=== PATIENT | female | born 1990 | race Caucasian/White ===

== ENCOUNTER 2018-09-13 07:28 | Inpatient (IN) | payer BC ==
[2018-09-13] VITALS (30 sets, daily range): BP systolic 115–164; BP diastolic 64–105; PULSE 85–134; TEMP 97.7–98.5
[~2018-09-13] VITALS: Ht 180.3 cm; Wt 93.2 kg
[2018-09-13] MEDS ORDERED: PRENATAL MVI (08:30)
[2018-09-13 08:36] LABS: BASO % 0.2 % (0.0-2.0); EOS # 0.1 (0.0-0.7); EOS % 0.6 % (0-4.0); GRAN # 6.5 (1.4-6.5); HEMOGLOBIN 12.4 g/dl (12.5-16.0); LYMPH % 21.5 % (20.0-51.0); MEAN CELL VOLUME 86 fl (80.0-100.0); MEAN CORPUSCULAR HEMOGLOBIN 29 pg (27.0-31.0); MEAN CORPUSCULAR HGB CONC 34 g/dl (33.0-37.0); MEAN PLATELET VOLUME 11.8 fl (7.4-10.4); MONO # 0.7 (0.1-0.6); MONO % 7.2 % (1.7-9.3); PLATELET COUNT 165 K/mm3 (130-400); RED BLOOD COUNT 4.27 M/mm3 (4.10-5.30); REDCELL DISTRIBUTION WIDTH-CV 13.2 % (11.5-14.5)
[2018-09-13 08:38] LABS: HEMATOCRIT 36.8 % (37.0-47.0)
[2018-09-13 08:45] LABS: ALBUMIN 3.8 gm/dL (3.5-5.0); BILIRUBIN,TOTAL 0.3 mg/dL (0.0-1.0); CALCIUM 9.8 mg/dL (8.4-10.2); CREATININE, serum 0.7 (0.52-1.25); TOTAL PROTEIN 7.5 gm/dL (6.4-8.2)
[2018-09-14 00:15] VITALS: BP 132/77; PULSE 77; TEMP 98.7
[2018-09-14 04:20] VITALS: BP 13/80; PULSE 97; TEMP 98.3
[2018-09-14 08:20] VITALS: BP 125/76; PULSE 100; TEMP 98
[2018-09-14 16:50] VITALS: BP 134/86; PULSE 100; TEMP 99
== END 2018-09-14 17:30 | disposition home or self-care (01) | DRG 807 ==
LOC: LDRO 07:28 → LDR 07:45 → OB 16:50
PROVIDERS: Obstetrics & Gynecology; ADMIT Student in an Organized Health Care Education/Training Program
PROC: 10E0XZZ Delivery of Products of Conception, External Approach (ICD-10-PCS; principal; 2018-09-13)
PROC: 0KQM0ZZ Repair Perineum Muscle, Open Approach (ICD-10-PCS; 2018-09-13)
DX: O13.3 Gestational [pregnancy-induced] hypertension without significant proteinuria, third trimester (principal); Z37.0 Single live birth; O77.0 Labor and delivery complicated by meconium in amniotic fluid; O70.1 Second degree perineal laceration during delivery; Z3A.40 40 weeks gestation of pregnancy
CPT/HCPCS: J2590; J2795; J7120

== ENCOUNTER 2021-06-29 06:27 | Inpatient (IN) | payer BC ==
[2021-06-29] VITALS (31 sets, daily range): BP systolic 97–156; BP diastolic 55–100; PULSE 72–133; TEMP 98.1–98.5
[~2021-06-29] VITALS: Ht 180.3 cm; Wt 98.3 kg
[~2021-06-29 06:27] MED LIST: PRENATAL MVI
[2021-06-29 07:07] LABS: BASO % 0.1 % (0.0-2.0); EOS # 0.1 K/mm3 (0.0-0.7); EOS % 1.3 % (0.0-4.0); GRAN # 5.8 K/mm3 (1.4-6.5); GRAN % 68.5 % (42.2-75.2); HEMOGLOBIN 12.1 g/dl (12.5-16.0); LYMPH # 1.9 K/mm3 (1.2-3.4); LYMPH % 21.7 % (20.0-51.0); MEAN CELL VOLUME 83 fl (80.0-100.0); MEAN CORPUSCULAR HEMOGLOBIN 28 pg (27-31); MEAN CORPUSCULAR HGB CONC 33 g/dl (33.0-37.0); MEAN PLATELET VOLUME 11.5 fl (7.4-10.4); MONO # 0.7 K/mm3 (0.1-0.6); PLATELET COUNT 172 K/mm3 (130-400); RED BLOOD COUNT 4.37 M/mm3 (4.10-5.30); REDCELL DISTRIBUTION WIDTH-CV 13.3 % (11.5-14.5)
[2021-06-29 07:08] LABS: HEMATOCRIT 36.3 % (37.0-47.0)
[2021-06-29 07:48] LABS: BILIRUBIN,TOTAL 0.5 mg/dL (0.2-1.2); CALCIUM 8.9 mg/dL (8.4-10.2); CREATININE, serum 0.77 mg/dL (0.57-1.11); POTASSIUM 3.8 mmol/L (3.5-4.5); TOTAL PROTEIN 6.9 gm/dL (6.2-8.1)
[2021-06-29 08:28] LABS: COLLECTION METHOD CLEAN CATCH
[2021-06-29 08:35] LABS: MUCOUS Present (NOT PRESENT); PH 6 (5-8); SQUAMOUS EPITHELIAL 0-2 /hpf (0-10); URINE APPEARANCE Clear (CLEAR/HAZY); URINE BACTERIA None Seen /hpf (NONE SEEN); URINE BILIRUBIN Negative (NEGATIVE); URINE BLOOD 2+ (NEGATIVE); URINE COLOR Yellow (YELLOW); URINE GLUCOSE Negative (NEGATIVE); URINE KETONE Trace (NEGATIVE); URINE LEUKOCYTE ESTERASE Negative (NEGATIVE); URINE NITRATE Negative (NEGATIVE); URINE PROTEIN(semi-quant) Negative (NEGATIVE); URINE RBC 0-2 /hpf (0-2); URINE UROBILINOGEN Negative (NEGATIVE); URINE WBC 0-2 /hpf (0-2)
--- NOTE | 2021-06-29 10:06 | NUR ---
1000- PT REQUEST EPIDURAL. UP TO BATHROOM. 1005- DR. TORRES UPDATED ON PT REQUEST FOR EPIDURAL PLACEMENT, CONTRACTION PATTERN, AND FHT'S, PITOCIN AT 20MU. NO NEW ORDERS AT THIS TIME. 1006- Dinora TURCIOS CRNA NOTIFIED OF PT REQUEST FOR EPIDURAL PLACEMENT. ON HIS WAY TO THE HOSPITAL.
--- NOTE | 2021-06-29 10:30 | NUR ---
1030- Dinora TURCIOS CRNA IN ROOM FOR EPIDURAL PLACEMENT, PT SITTING UP AT BEDSIDE. 1036- SINGLE SHOT PLACED BY Dinora TURCIOS CRNA 1042- PT TOLERATED EPIDURAL WELL, REPOSITIONED TO RIGHT TILT.
--- NOTE | 2021-06-29 12:25 | NUR ---
1135- ACOSTA PLACED, SVE OF COMPLETE/+2. 1143- LATE DECELS NOTED, PT STATES FEELING NAUSEATED AND LIGHTHEADED. BP DOWN IN THE 90/50'S. ZOFRAN AND EPHEDRINE GIVEN, SEE EMAR. 1144- DR. TORRES NOTIFED OF IMPENDING DELIVERY, ON HER WAY TO THE HOSPITAL. 1150- BP INCREASED TO 130/60'S , PT STATES SHE IS NO LONGER NAUSEATED OR LIGHTHEADED. FHT'S IMPROVED, EARLY DECELS CONTINUE. 1200- DR. TORRES IN ROOM FOR DELIVERY, PERFORMS PRACTICE PUSH WITH PATIENT. PT PUSHES WELL, ROOM PREPARED FOR DELIVERY. ACOSTA DC'D, 150MLS OUT. 1207- SPONTANEOUS VAGINAL DELIVERY OF VIABLE BABY GIRL. BABY TO MOTHER'S ABDOMEN. CORD CLAMPED BY DR. TORRES, CUT BY FOB. BABY CARES ASSUMED BY HEATH, RN. 1210- SPONTANEOUS DELIVERY OF INTACT PLACENTA. PITOCIN STARTED AT 333MLS/HR PER PROTOCOL. 1220- 2ND DEGREE LAC REPAIRED BY DR. TORRES, 3 SKIN TAGS REMOVED FROM PERINUEM, 1 REQUIRED SUTURE, SILVER NITRATE APPLIED TO THE OTHER 2. 1225- RECOVERY STARTED AT THIS TIME.
--- NOTE | 2021-06-29 14:55 | NUR ---
1430- PT UP TO BATHROOM, UNABLE TO VOID AT THIS TIME. ENCOURAGED ORAL FLUIDS. PERICARE GIVEN AND EDUCATION PROVIDED. PERIPAD, ICEPACK, AND MESH UNDERWEAR APPLIED, GOWN CHANGED. EPIDURAL CATHETER REMOVED FOLLOWING DELIVERY BY Dinora TURCIOS CRNA. 1455- PT ABLE TO AMBULATE WELL TO . ORIENTED TO ROOM. PT INSTRUCTED TO NOTIFY STAFF WHEN URGE TO VOID. UNDERSTANDING VERBALIZED. PT DENIES PAIN AT THIS TIME. PT CURRENTLY VISITING WITH FAMILY.
[2021-06-30] VITALS: BP 149/84; PULSE 84; TEMP 98.3
--- NOTE | 2021-06-30 08:00 | NUR ---
Assessment done with student nurse and this RN. All charting reviewed and agreed with by this RN.
[2021-06-30 08:01] VITALS: BP 131/82; PULSE 81; TEMP 97.9
--- NOTE | 2021-06-30 09:49 | NUR ---
Initial visit; Parents thanked Pharmacogeneticist for looking in on them and offering congratulations and God's blessings for the of their daughter. Pharmacogeneticist thanked family for choosing [facility].
== END 2021-06-30 14:25 | disposition home or self-care (01) | DRG 807 ==
LOC: OB 06:27 → LDR 06:27 → OB 07:43
PROVIDERS: ADMIT Student in an Organized Health Care Education/Training Program
PROC: 10E0XZZ Delivery of Products of Conception, External Approach (ICD-10-PCS; principal; 2021-06-29)
PROC: 0KQM0ZZ Repair Perineum Muscle, Open Approach (ICD-10-PCS; 2021-06-29)
PROC: 3E033VJ Introduction of Other Hormone into Peripheral Vein, Percutaneous Approach (ICD-10-PCS; 2021-06-29)
PROC: 10907ZC Drainage of Amniotic Fluid, Therapeutic from Products of Conception, Via Natural or Artificial Opening (ICD-10-PCS; 2021-06-29)
PROC: 0HBAXZZ Excision of Inguinal Skin, External Approach (ICD-10-PCS; 2021-06-29)
DX: O13.4 Gestational [pregnancy-induced] hypertension without significant proteinuria, complicating childbirth (principal); Z37.0 Single live birth; O75.89 Other specified complications of labor and delivery; N90.89 Other specified noninflammatory disorders of vulva and perineum; O70.1 Second degree perineal laceration during delivery; O76 Abnormality in fetal heart rate and rhythm complicating labor and delivery; Z3A.39 39 weeks gestation of pregnancy
CPT/HCPCS: J2400; J2405; J2590; J2795; J7120

== ENCOUNTER 2023-05-19 16:04 | Inpatient (IN) | payer BC ==
[2023-05-19] VITALS (12 sets, daily range): BP systolic 128–173; BP diastolic 57–93; PULSE 73–125; TEMP 97.6–98.2
[~2023-05-19] VITALS: Ht 182.9 cm; Wt 98.2 kg
--- NOTE | 2023-05-19 16:15 | NUR ---
PT AMBULATORY WITH SPOUSE TO LR6. PT CHANGED INTO CLEAN GOWN. FHR MONITOR/TOCO APPLIED. PT COMPLAINING OF CONTRACTIONS. PT REPORTS THAT SHE DELIVERS QUICKLY. 1620 SVE BY THIS RN .
--- NOTE | 2023-05-19 16:23 | NUR ---
Ponce TURCIOS OFFICE AUTOMATION TECHNICIAN CALLED FOR EPIDURAL PLACEMENT
[2023-05-19] MEDS ORDERED: Chloroprocaine PF 3% (30 MG/ML) 20 ML VIAL ONE (16:57)
[2023-05-19] MEDS ORDERED: LR 1,000 ML IV SCH (17:00)
[2023-05-19 17:15] LABS: BASO % 0.1 % (0.0-2.0); EOS # 0.1 K/mm3 (0.0-0.7); EOS % 0.7 % (0.0-4.0); GRAN # 8.6 K/mm3 (1.4-6.5); GRAN % 69.8 % (42.2-75.2); HEMATOCRIT 38.7 % (37.0-47.0); HEMOGLOBIN 12.8 g/dl (12.5-16.0); LYMPH # 2.8 K/mm3 (1.2-3.4); LYMPH % 22.4 % (20.0-51.0); MEAN CELL VOLUME 86 fl (80.0-100.0); MEAN CORPUSCULAR HEMOGLOBIN 28 pg (27-31); MEAN CORPUSCULAR HGB CONC 33 g/dl (33.0-37.0); MEAN PLATELET VOLUME 11.2 fl (7.4-10.4); MONO # 0.8 K/mm3 (0.1-0.6); MONO % 6.8 % (1.7-9.3); PLATELET COUNT 185 K/mm3 (130-400); RED BLOOD COUNT 4.52 M/mm3 (4.10-5.30); REDCELL DISTRIBUTION WIDTH-CV 13.9 % (11.5-14.5)
[2023-05-19] MEDS ORDERED: diphenhydrAMINE 50 MG/ML 1 ML VIAL IV PRN (17:15)
[2023-05-19] MEDS ORDERED: ePHEDrine 50 MG/10 ML VIAL IV PRN (17:15)
[2023-05-19] MEDS ORDERED: diphenhydrAMINE 25 MG CAP PO PRN (17:15)
[2023-05-19] MEDS ORDERED: Naloxone 0.4 MG/ML VIAL IV PRN ×2 (17:15→21:30)
[2023-05-19] MEDS ORDERED: Ondansetron 4 MG/2 ML VIAL IV PRN (17:15)
--- NOTE | 2023-05-19 17:35 | NUR ---
1647 PT SITTING UP FOR EPIDURAL PLACEMENT. Ponce TURCIOS LEATHER CRAFTER SETTING UP AND AT PT'S BEDSIDE EXPLAINING PROCEDURE AND OBTAINING CONSENT. 1653 SINGLE SHOT GIVEN. 1658 PT REPOSITIONED TO HIGH FOWLERS. 1720 DR SKAGGS AT PT'S BEDSIDE. SVE AT THIS TIME /+3. THIS RN AND DR SKAGGS SETTING UP FOR DELIVERY. Deonna SCALES RN FOR NURSERY JOSE WARNER RN IN ROOM. 1728 SPONTANEOUS DELIVERY OF VIABLE MALE . BULB SUCTIONED AND STIMULATED. TO MOTHER'S ABDOMEN. CORD CLAMPED BY DR SKAGGS AND CUT BY FOB. Deonna SCALES RN TAKES OVER CARE OF INFANT. INFANT TO MOTHER'S CHEST FOR SKIN TO SKIN. 1732 SPONTANEOUS DELIVERY OF PLACENTA. PITOCIN BOLUS STARTED PER PROTOCOL. 2ND DEGREE PERINEAL LACERATION NOTED AND REPAIRED BY DR SKAGGS. 5 SKIN LESIONS REMOVED BY DR SKAGGS. SKIN LESIONS TO BE SENT TO PATHOLOGY. SILVER NITRATE SWABS APPLIED TO WHERE SKIN LESIONS WERE REMOVED. STRAIGHT CATH DONE. 100CC NOTED. PERICARE DONE. PT REPOSITIONED. ICE PACK PAD PLACED. SAFETY PRECAUTIONS AND PLAN OF CARE DISCUSSED. PT VERBALIZES UNDERSTANDING.
[2023-05-19] MEDS ORDERED: Magnes Hydrox (MOM) 80 MG/ML 30 ML CUP PO PRN (18:00)
[2023-05-19] MEDS ORDERED: Loratadine 10 MG TAB PO PRN (18:00)
[2023-05-19] MEDS ORDERED: LR & Oxytocin 500 ML IV SCH (19:00)
[2023-05-19] MEDS ORDERED: traZODone 50 MG TAB PO PRN (21:00)
[2023-05-19] MEDS ORDERED: Witch Hazel 50% Pads Bulk TUB TP PRN (21:30)
[2023-05-19] MEDS ORDERED: oxyCODONE 5 MG TAB PO PRN (21:30)
[2023-05-19] MEDS ORDERED: Mag/Al Hydrox/Simeth Susp 30 ML CUP PO PRN (21:30)
[2023-05-19] MEDS ORDERED: Acetaminophen 500 MG TAB PO SCH (21:30)
[2023-05-19] MEDS ORDERED: Measles/Mumps/Rubella Virus Vaccine Live w Diluent 0.5 ML VIAL SQ SCH (21:30)
[2023-05-19] MEDS ORDERED: Ibuprofen 600 MG TAB PO SCH (21:30)
[2023-05-19] MEDS ORDERED: Phenylephrine/Mineral Oil/Petrolatum 57 GM TUBE RC PRN (21:30)
[2023-05-20 03:25] VITALS: BP 141/90; PULSE 76; TEMP 98.2
[2023-05-20 04:51] LABS: HEMOGLOBIN 10.9 g/dl (12.5-16.0)
[2023-05-20 04:55] LABS: HEMATOCRIT 31.9 % (37.0-47.0)
[2023-05-20] MEDS ORDERED: Sennosides/Docusate 8.6-50 MG TAB PO SCH (08:00)
[2023-05-20] MEDS ORDERED: Prenatal Vitamins/Iron/FA TAB PO SCH (09:00)
[2023-05-20 09:30] VITALS: BP 144/89; PULSE 94; TEMP 98.2
--- NOTE | 2023-05-20 19:00 | NUR ---
1900- NURSE TO ROOM. DICHARGE INSTRUCTIONS GIVEN AND QUESTIONS ANSWERED. PT VERBALIZES UNDERSTANDING AND SIGNS PAPERWORK. 1914- PT DISMISSED TO HOME AMBULATORY WITH BABY AND BELONGINGS. ACCOMPANIED BY SPOUSE. NURSE ESCORTS PT TO EXIT.
== END 2023-05-20 19:15 | disposition home or self-care (01) | DRG 807 ==
LOC: LDRO 16:04 → LDR 16:20 → OB 20:55
PROVIDERS: Obstetrics & Gynecology; ADMIT Student in an Organized Health Care Education/Training Program
PROC: 10E0XZZ Delivery of Products of Conception, External Approach (ICD-10-PCS; principal; 2023-05-19)
PROC: 0KQM0ZZ Repair Perineum Muscle, Open Approach (ICD-10-PCS; 2023-05-19)
PROC: 0HBJXZZ Excision of Left Upper Leg Skin, External Approach (ICD-10-PCS; 2023-05-19)
PROC: 0HBHXZZ Excision of Right Upper Leg Skin, External Approach (ICD-10-PCS; 2023-05-19)
PROC: 10907ZC Drainage of Amniotic Fluid, Therapeutic from Products of Conception, Via Natural or Artificial Opening (ICD-10-PCS; 2023-05-19)
DX: O13.4 Gestational [pregnancy-induced] hypertension without significant proteinuria, complicating childbirth (principal); Z37.0 Single live birth; Z3A.39 39 weeks gestation of pregnancy; O70.1 Second degree perineal laceration during delivery; L91.8 Other hypertrophic disorders of the skin; O99.72 Diseases of the skin and subcutaneous tissue complicating childbirth
CPT/HCPCS: J2401; J2590; J2795; J7120